=== PATIENT | female | born 1970 | race Hispanic/Latino ===

== ENCOUNTER → 2019-05-04 | Outpatient (CLI) | payer BC | END | disposition home or self-care (01) | LOC: RAH 15:36 | PROVIDERS: ATTEND Physician Assistant | DX: Z12.31 Encounter for screening mammogram for malignant neoplasm of breast (principal) | CPT/HCPCS: 77067 ==

== ENCOUNTER → 2020-05-28 | Outpatient (CLI) | payer BC | END | disposition home or self-care (01) | LOC: RAH 15:01 | PROVIDERS: ATTEND Physician Assistant | DX: Z12.31 Encounter for screening mammogram for malignant neoplasm of breast (principal) | CPT/HCPCS: 77067 ==

== ENCOUNTER → 2021-06-17 | Outpatient (CLI) | payer BC | END | disposition home or self-care (01) | LOC: RAH 15:50 | PROVIDERS: ATTEND Physician Assistant | DX: Z12.31 Encounter for screening mammogram for malignant neoplasm of breast (principal) | CPT/HCPCS: 77067 ==

== ENCOUNTER → 2022-06-18 | Outpatient (CLI) | payer BC | END | disposition home or self-care (01) | LOC: RAH 15:40 | PROVIDERS: ATTEND Physician Assistant | DX: Z12.31 Encounter for screening mammogram for malignant neoplasm of breast (principal) | CPT/HCPCS: 77067 ==

== ENCOUNTER → 2023-06-22 | Outpatient (CLI) | payer BC | END | disposition home or self-care (01) | LOC: RAH 15:35 | PROVIDERS: ATTEND Family Medicine | DX: Z12.31 Encounter for screening mammogram for malignant neoplasm of breast (principal); I25.10 Atherosclerotic heart disease of native coronary artery without angina pectoris | CPT/HCPCS: 77067 ==

== ENCOUNTER → 2024-06-23 | Outpatient (CLI) | payer BC ==
--- NOTE | 2024-06-24 08:58 | HMCIMG ---
Exam Type: MAMMO SCREENING BILATERAL Clinical Information: ANNUAL SCREENING Comparison: June 22, 2023 Technique: Mammogram with CAD was performed with CC and MLO projections. CAD shows no worrisome regions. FINDINGS: The breasts are almost entirely fatty. No dominant mass or suspicious microcalcification identified. There is no nipple retraction or skin thickening. IMPRESSION: 1. No mammographic signs of malignancy. 2. Routine follow-up recommended. CATEGORY 1: NEGATIVE Note: A negative x-ray should not delay biopsy if a dominant or clinically suspicious mass is present, since 8-10% of cancers are not identified by mammography.
== END | disposition home or self-care (01) ==
LOC: RAH 15:16
PROVIDERS: ATTEND Family Medicine
DX: Z12.31 Encounter for screening mammogram for malignant neoplasm of breast (principal); R92.30 Dense breasts, unspecified
CPT/HCPCS: 77067